=== PATIENT | female | born 1970 | race Caucasian/White ===

== ENCOUNTER 2021-08-03 14:26 | Outpatient (CLI) | payer BC, SELFPAY ==
--- NOTE | ~2021-08-03 | XR_ITS ---
XR ankle RT min 3V DATE: 08/03/2021 14:39 INDICATION: Right ankle pain TECHNIQUE: 4 views COMPARISON: 06/30/2021 right ankle FINDINGS: No recent fracture or dislocation of the ankle or disruption of the ankle mortise. No perio steal reaction or bone destruction. IMPRESSION: No recent fracture or dislocation Reviewed, dictated and finalized at location A.
== END 2021-08-03 14:27 | disposition home or self-care (01) ==
PROVIDERS: PCP Internal Medicine; Visit Provider Orthopaedic Surgery
DX: M25.571 Pain in right ankle and joints of right foot (principal)
CPT/HCPCS: 73610

== ENCOUNTER 2021-12-14 12:59 | Outpatient (CLI) | payer BC, SELFPAY ==
--- NOTE | ~2021-12-14 | XR_ITS ---
XR ankle RT min 3V DATE: 12/14/2021 13:12 INDICATION: Rolled right ankle. History of right ankle fracture. 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 Stab le since 08/03/2021. No recent fracture or dislocation of the ankle or disruption of the ankle mortise is detected. Slight plantar calcaneal enthesopathy. IMPRESSION: No recent fracture or dislocation Reviewed, dictated and finalized at location A.
== END 2021-12-14 13:00 | disposition home or self-care (01) ==
LOC: ANHBWCIMG 13:01
PROVIDERS: PCP Internal Medicine; Visit Provider Orthopaedic Surgery
DX: M25.571 Pain in right ankle and joints of right foot (principal)
CPT/HCPCS: 73610

== ENCOUNTER 2022-04-08 14:35 | Outpatient (CLI) | payer BC, SELFPAY ==
--- NOTE | 2022-04-08 14:46 | ECG_ITS ---
Measurements Intervals [place] Rate: 67 P: 34 IA: 128 QRS: 26 QRSD: 105 T: 30 QT: 411 QTc: 437 Interpretive Statements SINUS RHYTHM NO PREVIOUS ECG AVAILABLE FOR COMPARISON Electronically Signed On 04-08-2022 15:01:05 SURVEYING OR SPATIAL SCIENCE TECHNICIAN by Shayne Colvin M.D.
== END 2022-04-08 14:36 | disposition home or self-care (01) ==
PROVIDERS: PCP Internal Medicine; Visit Provider Orthopaedic Surgery
DX: I34.1 Nonrheumatic mitral (valve) prolapse (principal)
CPT/HCPCS: 93005

== ENCOUNTER 2022-04-15 00:48 | Day surgery (SDC) | payer BC, SELFPAY ==
[2022-03-31 10:25] VITALS: BMI 34.1
--- NOTE | 2022-03-31 11:22 | SUR.PREOP ---
Report to the Outpatient Waiting Room, entrance under the green pavilion located off [facility], at time ____06___ on date ___04/15____. Planned Procedure Time: ____729____. Time changes happen often and if your time is changed the preop area will call you the afternoon before. - You and your visitor will be asked to self-screen and do not enter if you have any COVID symptoms. - Only one visitor is requested with a max of two and NO children visitors are allowed at this time. - The patient visitor may be requested to leave or wait in car when not with patient due to distancing restrictions. - A mask is optional within the hospital at this time. Patients may have clear liquids (water, carbonated beverages, clear teas, apple juice) until 3 hours prior to surgery with a maximum of 20 ounces. - No food from midnight until time of surgery - Infants may have breast milk until 4 hours before surgery, infant formula 6 hours prior to surgery. - Children will be allowed to drink immediately following surgery. If applicable, please bring a bottle or sippy cup to assist with drinking. Juice, water, soda, and popsicles are readily available. For infants on formula, please bring formula the day of surgery. Pacifiers are allowed. Take the following medications with a SIP of water the morning of surgery: ASPERIN 81, LEVOTHYROXINE, METOPROLOL DO NOT STOP ANY OF YOUR OTHER PRESCRIPTION MEDICATIONS PRIOR TO SURGERY ?EXCEPT THE FOLLOWING Medications to discontinue per physician ALL VITAMINS AND SUPPLIMENTS 3 DAYS PRIOR Date to take last dose 04/12/22 Please no make-up, nail lithuanian, hairspray, perfume, deodorant, or body powder the day of surgery. No jewelry (including any body piercings) or valuables the day of surgery, leave them at home. Please take a shower or bath the night before, or the morning of, surgery with an antibacterial soap. Wear comfortable, loose fitting clothing. Children are encouraged to wear pajamas. - Jewelry must be removed prior to entering the operating room. Rings and piercings that are not removed may be cut off. - The hospital will not accept responsibility for valuables. - Please leave all valuables, including medications, at home the day of surgery. If you are going home after surgery, a licensed set key driver must drive you home. - NO public transportation without another adult if you receive anesthesia. - We recommend that an adult stay with you for 24 hours following discharge. - We also recommend that you do not drive, make important decision, drink alcoholic beverages, or take any drugs that were not prescribed by your health care provider for at least 24 hours after your discharge time. For Pediatric surgeries, we recommend two adults accompany the child home. Follow any additional instructions given to you from your surgeon. If you or anyone in your household have experienced Covid symptoms in the past week, please notify your surgeon or the nurse liaison at the phone number below for possible testing. Telephone instructions given to ____DAYDAY RIDDER and asked if any additional questions and then verbalized understanding. Patient advised to call surgeon office or pre surgery nurse liaison [phone] if any additional questions.
--- NOTE | 2022-04-01 13:25 | SUR.PREOP ---
Report to the Outpatient Waiting Room, entrance under the green pavilion located off [address], at time ___0600____ on date ____04/15/22___. Planned Procedure Time: ____729____. Time changes happen often and if your time is changed the preop area will call you the afternoon before. - You and your visitor will be asked to self-screen and do not enter if you have any COVID symptoms. - Only one visitor is requested with a max of two and NO children visitors are allowed at this time. - The patient visitor may be requested to leave or wait in car when not with patient due to distancing restrictions. - A mask is optional within the hospital at this time. Patients may have clear liquids (water, carbonated beverages, clear teas, apple juice) until 3 hours prior to surgery with a maximum of 20 ounces. - No food from midnight until time of surgery - Infants may have breast milk until 4 hours before surgery, formula 6 hours prior to surgery. - Children will be allowed to drink immediately following surgery. If applicable, please bring a bottle or sippy cup to assist with drinking. Juice, water, soda, and popsicles are readily available. For infants on formula, please bring formula the day of surgery. Pacifiers are allowed. Take the following medications with a SIP of water the morning of surgery: levothyroxine, metoprolol DO NOT STOP ANY OF YOUR OTHER PRESCRIPTION MEDICATIONS PRIOR TO SURGERY ?EXCEPT THE FOLLOWING Medications to discontinue per physician stop all vitamins and suppliments and call dr kay office about taking asperin 81 day of procedure Date to take last dose 04/12/22 Please no make-up, nail bulgarian, hairspray, perfume, deodorant, or body powder the day of surgery. No jewelry (including any body piercings) or valuables the day of surgery, leave them at home. Please take a shower or bath the night before, or the morning of, surgery with an antibacterial soap. Wear comfortable, loose fitting clothing. Children are encouraged to wear pajamas. - Jewelry must be removed prior to entering the operating room. Rings and piercings that are not removed may be cut off. - The hospital will not accept responsibility for valuables. - Please leave all valuables, including medications, at home the day of surgery. If you are going home after surgery, a licensed driver service technician must drive you home. - NO public transportation without another adult if you receive anesthesia. - We recommend that an adult stay with you for 24 hours following discharge. - We also recommend that you do not drive, make important decision, drink alcoholic beverages, or take any drugs that were not prescribed by your health care provider for at least 24 hours after your discharge time. For Pediatric surgeries, we recommend two adults accompany the child home. Follow any additional instructions given to you from your surgeon. If you or anyone in your household have experienced Covid symptoms in the past week, please notify your surgeon or the nurse liaison at the phone number below for possible testing. Telephone instructions given to MELODY RIDDER and asked if any additional questions and then verbalized understanding. Patient advised to call surgeon office or pre surgery nurse liaison [phone] if any additional questions.
[2022-04-15] VITALS (8 sets, daily range): BP systolic 116–140; BP diastolic 60–99; PULSE 73–109; RESP 10–23; TEMP 36.4–37.9; O2SAT 93–100
--- NOTE | ~2022-04-15 | XR_ITS ---
EXAMINATION: XR surgery orthopedic DATE: 04/15/2022 10:25 INDICATION: Right ankle ligament reconstruction TECHNIQUE: 4 fluoroscopic images of the right ankle were obtained during procedure performed by Dr. Mesfin castaneda. Radiologist was not present for the imaging or procedure. The amount of fluoroscopy time used during this procedure was 0.1 minutes. COMPARISON: Right ankle radiographs dated 12/14/2021 FINDINGS: A prior heterotopic ossicle along the distal margin of the fibula is no longer visualized and has lik osmany been resected. Bone alignment is normal with a congruent ankle mortise. No fractures identified. Expected small amount of postoperative intra-articular gas at the right ankle joint. Joint space appe ars normal. IMPRESSION: 1. Fluoroscopy utilized during orthopedic procedure at the right ankle including resection of a heter otopic ossicle at the tip of the lateral malleolus. Correlate with procedure note for further detail. Reviewed, dictated and finalized at location A. KING MACHINE OPERATOR IMPRESSION: 1. Fluoroscopy utilized during orthopedic procedure at the right ankle includin g resection of a heterotopic ossicle at the tip of the lateral malleolus. Corre late with procedure note for further detail.
--- NOTE | 2022-04-15 06:46 | WPDHPUPDATE1 ---
History and Physical Update Update Date/Time: 04/15/22 06:46 History and Physical has been reviewed, including an updated exam of the patient. There are NO changes in the patient's condition. Risks, benefits, and alternatives have been discussed and questions answered. Patient agrees to proceed with procedure.
--- NOTE | 2022-04-15 07:23 | WPDANESEPPF ---
Anes - Initial Pre Proc Eval Procedure: Operation Date: 04/15/22 08:30 Proposed Procedures p Right Ankle Lateral Ligament Reconstruction - Alan Bedoya MD Date/Time: 04/15/22 07:23 Surgeon: Alan Bedoya MD Pre Op Diagnosis: Rt Ankle Instability Patient Data Age: 52 Gender: F Height: 1.7 m Weight: 98.88 kg Allergies Allergy/AdvReac Type Severity Reaction Status Date / Time amoxicillin [From Augmentin] AdvReac Mild skin Verified 04/15/22 07:05 reaction clavulanic acid AdvReac Mild skin Verified 04/15/22 07:05 [From Augmentin] reaction levofloxacin [From Levaquin] AdvReac Mild skin Verified 04/15/22 07:05 reaction Home Medications Medication Instructions Recorded Confirmed Type aspirin 81 mg tablet,delayed 81 mg PO DAILY 05/29/21 03/31/22 History release levothyroxine 75 mcg capsule 75 mcg PO DAILY 05/29/21 03/31/22 History melatonin 10 mg capsule 10 mg PO QHS 05/29/21 03/31/22 History metoprolol succinate 25 mg 12.5 mg PO DAILY 05/29/21 03/31/22 History tablet,extended release 24 hr trazodone 50 mg tablet 50 mg PO QHS 05/29/21 03/31/22 History citalopram 20 mg tablet (Celexa) 25 mg PO DAILY 12/14/21 03/31/22 History Adult Probiotic 1 cap PO DAILY 03/31/22 03/31/22 History arginine (L-arginine) 1 cap PO DAILY 03/31/22 03/31/22 History nhjdwot-lwfbakxme-whis 1 cap PO DAILY 03/31/22 03/31/22 History norethindrone 1 mg-ethinyl 1 tablet PO DAILY 03/31/22 03/31/22 History estradiol 10 mcg (24)-iron 10 mcg(2) tablet (Lo Loestrin Fe) Patient hx anesthesia problems: none Family hx anesthesia problems: none Results Review: All pre-operative results and documents have been reviewed as part of the pre-operative evaluation. [facility] Past Medical History Medical History Avulsion fracture of right ankle Claustrophobia History of anesthesia problem Hypothyroidism MVP (mitral valve prolapse) Right ankle instability Surgical History Surgical History H/O breast surgery left lumpectomy H/O foot surgery bilateral neuroma excision H/O prior ablation treatment uterus History of cholecystectomy Family History Family History Other Arthritis Depression HLD (hyperlipidemia) Heart disease Hypertension Social History Social History Smoking status: Former smoker Tobacco type: cigarettes Additional smoking assessment comments: PT STATED THAT SHE SMOKED SOCIALLY IN HIGH SCHOOL Alcohol intake: current Substance use: never Substance use type: does not use Living arrangements: alone Occupation/Education: occupation Gender identity (if verbalized by the patient): Female Spiritual care concerns: No Anes - Eval Final PreProcedure Day of Procedure 04/15/22 07:23 Patient weight: obese Heart: regular rate and rhythm Lungs: clear to auscultation Airway: Mallampati scale class II Neurological: alert and oriented Last oral intake: >/= 8 hours ASA classification: III Emergent: no Anesthetic plan: proceed Anesthesia type and monitoring: general LMA and standard monitoring Results Review: All pre-operative results and documents have been reviewed as part of the pre-operative evaluation. Informed Consent: The patient's anesthetic plan and its attendant risks and benefits were discussed with the patient/family/POA. Questions were solicited and answers provided to the satisfaction of the patient/family/POA.
[2022-04-15] MEDS: ACETAMINOPHEN 500 MG TABLET 1000 MG PO (07:41)
[2022-04-15] MEDS: LACTATED RINGERS 1,000 ML 30 ML IV CONT ×2 (07:45→10:51)
[2022-04-15] MEDS: KETOROLAC 15 MG/ML VIAL (*BKC) IV PUSH (07:48)
--- NOTE | 2022-04-15 08:20 | SUR.PREOP ---
0656-Dr. Torres notified of pt temp of 100.2 and hx of recent (2/3) positive covid w/antiviral tx. Has had no fevers since but slight residual cough. States from anesthesia perspective, is okay for OR if okay w/Dr. Bedoya. 0658-Dr. Bedoya aware of above and okay to proceed.
[2022-04-15] MEDS: ceFAZolin 2 GM/D5W 50 ML 2 GM/50 ML BAG IVPB (08:59)
[2022-04-15] MEDS: BUPIVACAINE/EPINEPHRINE 0.5% 10 ML VIAL 30 ML INFILTRATE (09:33)
--- NOTE | 2022-04-15 11:02 | W.PM.PROC2 ---
Procedure Note - Detailed Date of Procedure 04/15/22 Pre-op Diagnosis Rt Ankle Instability Peroneal tendon tear right ankle. Post-op Diagnosis Same ( Peroneal tendon tear) Procedure Performed right ankle lateral ligament reconstruction, peroneal tendon reconstruction Surgeon Alan Bedoya MD [place] [employer] 1st seismic survey assistant Anesthesia General Indications 52-year-old woman with previous right distal fibula avulsion fracture. Now with instability and pain. Failed conservative treatment bracing, physical therapy and activity modification. Presents for operative treatment due to instability. Findings Longitudinal split tears of the peroneus tendon longus and brevis. 75% of Each tendon remaining and viable. Description of Procedure Patient identified in the preoperative holding. Informed consent given. Operative extremity marked. Patient received intravenous antibiotics. Patient brought to the operating room where she underwent general anesthetic by anesthesia team. Positioned Supine with a bump under the ipsilateral side on operating room table. Careful padding and securing of the down side with VAC pack positioning. Head and neck secured. Time-out performed confirming the patient, site of the surgery and the plan. Right lower extremity prepped draped usual sterile surgical fashion using a ChloraPrep skin solution. Foot and ankle exsanguinated and a thigh tourniquet inflated to 250 mmHg. Curvilinear incision over the anterolateral ankle and distal fibula from previous surgery. Incision made with 15 blade knife using the previous surgical scar. Hemostasis controlled electrocautery. Dissection carried down to the fascia which was incised in line with skin incision. Careful dissection to isolate the nerve elements and protect these during the case. Anterior talofibular and calcaneofibular ligaments identified. These were noted to be unstable. Ligaments were then sharply elevated off of the distal fibula. avulsion fragment from the distal fibula identified and noted to be non healed and unstable. This was shelled out from the surrounding soft tissue and removed. Distal fibula prepared with a rongeur. Rongeur used to remove a small bone spur from the anterolateral talus. Thorough irrigation of the ankle joint and distal fibula. Repair of the ligament then performed with Suture tack. This was drilled into the distal tibia and impacted into position. Good fixation noted. This allowed 4 strands of suture which were then passed through the anterior talofibular ligament and calcaneofibular ligaments and repaired to the fibula. Secondary repair with internal brace then performed. 3.5 mm diameter drill hole placed from the distal fibula into the intramedullary canal and from the anatomic origin. The Internal brace suture tape was then fixed to the distal fibula. Fixation then achieved to the talar neck. Guide pin placed in the talar neck and verified with image intensification. Rail Signal Mechanic hole placed using a 4.5 mm drill. Ankle held in a dorsiflexed everted position and repair performed by attaching to the talar neck with the PushLock anchor. Thorough irrigation done of the anterior complex. Peroneal tendons then Inspected. Longitudinal incision made over the superficial peroneal retinaculum. Split tear both peroneus longus and peroneus brevis tendons noted. The split portion was sharply excised with 15 blade knife. Inflammatory tissue as well as low-lying muscle belly was also sharply excised. Superficial peroneal retinaculum then repaired in an imbricated fashion with 3-0 Monocryl interrupted suture. Thorough irrigation with saline. Fascia then repaired with 0 Vicryl interrupted suture. subcutaneous tissue repaired with 2 0 Vicryl suture, subcuticular tissue repaired with 3 0 Monocryl interrupted and skin repaired with 4-0 nylon running suture. Sterile dressing placed. Tourniquet released. Bulky dressing and splint applied. Patient awoken from
== END 2022-04-15 12:45 | disposition home or self-care (01) ==
PROVIDERS: PCP Internal Medicine; Visit Provider Orthopaedic Surgery
PROC: (CPT 28200; principal; 2022-04-15 08:30)
DX: S86.311A Strain of muscle(s) and tendon(s) of peroneal muscle group at lower leg level, right leg, initial encounter (principal); M25.371 Other instability, right ankle; X50.0XXA Overexertion from strenuous movement or load, initial encounter; Z87.81 Personal history of (healed) traumatic fracture; Z79.82 Long term (current) use of aspirin; E03.9 Hypothyroidism, unspecified; I34.1 Nonrheumatic mitral (valve) prolapse; Z87.891 Personal history of nicotine dependence; E66.9 Obesity, unspecified; Z68.36 Body mass index [BMI] 36.0-36.9, adult
CPT/HCPCS: 28200 ×2; 99199; A9270; C1713; J0690; J1100; J1885; J2250; J2405; J2704; J3010; J7120